=== PATIENT | female | born 1960 | race Caucasian/White ===

== ENCOUNTER → 2020-09-22 10:16 | Outpatient (CLI) | payer BC, SELFPAY ==
--- NOTE | ~2020-09-22 | XR_ITS ---
EXAMINATION: XR chest 2V EXAM DATE: 09/22/2020 10:33 INDICATION: R05 - Cough . TECHNIQUE: Frontal and lateral projections of the chest obtained and reviewed. There is no prior luke dy for comparison. FINDINGS: The lungs are clear. There are no pleural effusions. The cardiomediastinal silhouette is within normal limits. There is no pneumothorax suspected. The bones and soft tissues are unremarkab le. IMPRESSION: No acute cardiopulmonary findings. Reviewed, dictated and finalized at location A. 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
== END ==
PROVIDERS: PCP Family Medicine; Visit Provider Family Medicine
DX: R05 Cough (principal)
CPT/HCPCS: 71046

== ENCOUNTER → 2021-03-27 13:06 | Outpatient (CLI) | payer BC, SELFPAY ==
--- NOTE | ~2021-03-27 | MR_ITS ---
EXAMINATION: MR foot RT wo/w con DATE: 03/27/2021 14:27 INDICATION: Chronic enlarging right foot mass with discomfort. Rheumatoid nodule versus ganglion cyst . TECHNIQUE: Magnetic resonance imaging (MRI) of the right mid and hindfoot was performed without and w ith 12 mL Multihance intravenous contrast. Sequences included axial, sagittal and coronal T1-weighted FSE, axial and coronal T2-weighted FS FSE, sagittal fluid sensitive FSE STIR, axial T1-weighted FS F SE and post contrast T1-weighted FS FSE. COMPARISON: None. FINDINGS: Medial ankle ligaments: Deep and superficial deltoid ligaments as well as the spring ligament are normal. Lateral ankle ligaments: The anterior and posterior inferior tibiofibular ligaments are normal. The anterior talofibular, calc aneofibular and posterior talofibular ligaments are normal. Tendons: Achilles tendon is normal. The peroneus longus and brevis tendons are normal. The tibialis anterior a nd extensor hallucis longus and extensor digitorum longus tendons are normal. The flexor digitorum lo ngus and flexor hallucis longus tendons are normal. 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 Plantar fascia: The plantar aponeurosis is normal. Bones/other: Bone alignment is normal. No fracture or pathologic marrow replacing process. There is enhancing syno vitis at the fifth metatarsophalangeal joint with a few small erosions at the head of the fifth metat arsal. The remaining joint spaces appear normal. There are couple small enhancing lesions in the plan tar fat pad. One situated superficial to the calcaneal insertion of the plantar aponeurosis measures 1.6 x 1.3 x 1.1 cm with peripheral enhancement surrounding a small central T2 hyperintense region. Th e second located superficial to the base of the fifth metatarsal measures 1.9 x 1.0 x 0.8 cm. Fluid: 1.6 x 0 0.6 to 0.9 cm fluid signal intensity ganglion cyst arising from the tibiotalar joint and exte nding inferolaterally along the lateral neck of the talus. No joint effusions or other abnormal fluid collections. IMPRESSION: 1. A couple 1-2 cm enhancing nodules situated in the plantar fat pad plantar to the calcaneal tuberos ity and base of the fifth metatarsal and given appearance and particularly location would favor rheum atoid nodules over ganglion cyst, gouty tophus, adventitial bursa formation, abscess or neoplasm. 2. Synovitis at the fifth metatarsophalangeal joint with small erosions at the head of the fifth meta tarsal consistent with an inflammatory arthritis such as rheumatoid. Differential would also include gout.. 3. Mild tenosynovitis along the otherwise normal tibialis posterior tendon. Reviewed, dictated and finalized at location A. IMPRESSION: 1. A couple 1-2 cm enhancing nodules situated in the plantar fat pad plantar to the calcaneal tuberosity and base of the fifth metatarsal and given appearance and particularly location would favor rheumatoid nodules over ganglion cyst, g outy tophus, adventitial bursa formation, abscess or neoplasm. 2. Synovitis at the fifth metatarsophalangeal joint with small erosions at the head of the fifth metatarsal consistent with an inflammatory arthritis such as rheumatoid. Differential would also include gout.. 3. Mild tenosynovitis along the otherwise normal tibialis posterior tendon.
[2021-03-27 13:49] LABS: Estimated Glomerular Filt Rate > 60
== END ==
PROVIDERS: PCP Family Medicine; Visit Provider Podiatrist Foot & Ankle Surgery
DX: M06.371 Rheumatoid nodule, right ankle and foot (principal); M67.471 Ganglion, right ankle and foot
CPT/HCPCS: 73720; A9577

== ENCOUNTER → 2021-08-22 10:48 | Outpatient (CLI) | payer BC, SELFPAY ==
--- NOTE | ~2021-08-22 | XR_ITS ---
XR lumbar spine min 4V 08/22/2021 12:06 Indication: Low back pain Procedure: 5 views lumbar spine Comparison: 08/14/2018 Findings: There is grade 1 degenerative spondylolisthesis at L3-4. There is facet hypertrophy at L3-4 , L4-5 and L5-S1. There is disc narrowing at L3-4 and L5-S1. Pedicles intact. Sacral foramen are symm etric. Impression: 1: Moderate lumbar spondylosis. Reviewed, dictated and finalized at location A. 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
== END ==
DX: M47.816 Spondylosis without myelopathy or radiculopathy, lumbar region (principal)
CPT/HCPCS: 72110

== ENCOUNTER → 2022-08-06 13:58 | Outpatient (CLI) | payer BC, SELFPAY ==
--- NOTE | ~2022-08-06 | MM_ITS ---
EXAMINATION: MM screening rosalia BI w yoselin HISTORY: Screening mammogram TECHNIQUE: Craniocaudal and mediolateral oblique 3-D tomosynthesis images were obtained and synthetic 2-D images were generated. CAD analysis was submitted and interpreted. COMPARISON: 07/22/2008 bilateral diagnostic mammogram BREAST PARENCHYMAL COMPOSITION: The breasts are heterogeneously dense, which may obscure small masses . FINDINGS: There is no evidence of suspicious mass, calcification, or architectural distortion to sugg est malignancy in either breast. There has been no suspicious interval change. IMPRESSION: 1. No mammographic evidence of malignancy. 2. Recommend routine screening mammography in one year. BI-RADS Category 1: Negative Reviewed, dictated and finalized at location A. GIRDLER
== END ==
PROVIDERS: PCP Family Medicine; Visit Provider Family Medicine
DX: Z12.31 Encounter for screening mammogram for malignant neoplasm of breast (principal)
CPT/HCPCS: 77063; 77067

== ENCOUNTER 2023-06-23 11:38 | Inpatient (IN) | payer BC, SELFPAY ==
[2023-06-23] VITALS (33 sets, daily range): BP systolic 94–145; BP diastolic 53–93; PULSE 102–117; RESP 12–20; TEMP 36.4–37.1; O2SAT 97–100; BMI 21.9
--- NOTE | ~2023-06-23 | CT_ITS ---
EXAMINATION: CT abdomen pelvis w con DATE: 06/23/2023 13:17 INDICATION: GI bleed. TECHNIQUE: Computed tomography (CT) of the abdomen and pelvis was performed with 100 cc Omnipaque 350 intravenous contrast. The dose-length product was 203.50 mGy-cm. Automated exposure control and iter ative reconstruction technique were employed. COMPARISON: No prior studies for comparison. FINDINGS: Lung bases are unremarkable. Heart size normal. No significant pleural or pericardial effus ion. No significant vascular abnormality. No lymphadenopathy. Fatty infiltration of the liver. Gallbl adder is present. The spleen, pancreas, adrenal glands and kidneys are unremarkable. Nonobstructive b owel gas pattern. No free air or free fluid. There are follicular changes in the right ovary. Mild lo wer thoracic and lumbar spondylosis. There is dextroscoliosis of the lumbar spine. There is mild thic kening of the gastric antrum, suspicious for gastritis. IMPRESSION: 1. Mild thickening of the gastric antrum, suspicious for gastritis. 2: Hepatic steatosis. Reviewed, dictated and finalized at location A.
--- NOTE | 2023-06-23 11:42 | ECG_ITS ---
Measurements Intervals Grethel Rate: 115 P: 51 NJ: 139 QRS: 11 QRSD: 81 T: 58 QT: 342 QTc: 474 Interpretive Statements SINUS TACHYCARDIA NONSPECIFIC T-WAVE ABNORMALITY- INFERIOR LEADS BASELINE ARTIFACT- I, II, III, AVR, AVL, AVF, V1-V2, V6 ABNORMAL ECG NO PREVIOUS ECG AVAILABLE FOR COMPARISON Electronically Signed On 06-23-2023 13:24:38 CDT by Elder Vela D.O.
--- NOTE | 2023-06-23 11:54 | ED.WEAKNESS ---
HPI - Weakness General Chief complaint: Weakness Stated complaint: weakness Time Seen by Provider: 06/23/23 11:53 History of Present Illness HPI Narrative: Patient is a 62-year-old female with history of Eric's thyroiditis, on levothyroxine here with generalized weakness. Patient states that approximately 1 week ago she went to an Urgent Care and began Keflex treatment for cellulitis of her right hand. She notes that she was having significant pain in that right hand and was taking at a large amount of ibuprofen throughout the week. She noticed that she had some decreased appetite throughout the week as well and had been relying on juice and candy to keep her glucose steady. She notes that yesterday morning she sat up and sat on the side of the bed for quite a while because she was worried that if she stood up she may pass out. She notes that the symptoms resolved at that time and she was able to go on with her day yesterday without difficulty. Last night however she had a sudden urge to use the restroom, she notes that she had a large bowel movement last night. She then notes that in the middle of the night she had a 2nd episode where she woke suddenly from sleep needing to use the restroom. She states that she fell to the ground at that time which she describes a wheeling herself to the ground hitting her left shoulder and left cheek on her bedroom floor next to her bed. She states she then crawled herself to the restroom and was too weak to lift herself onto the toilet and had fecal incontinence. She notes that it was trish in color and thought that it was likely due to the Red Keflex she had been taking a week. She was unable to get up and had to crawl herself for 2 hours to her living room to call a family member to help her. She denies any abdominal pain at this time. She denies any prior colonoscopy or endoscopy. She previously had done Cologuard screening through her primary care doctor which is always been negative. She is a social weekend drinker. No prior cardiac disease. She received some IV fluids from EMS which she does believe has helped with her symptoms. No prior blood transfusion. She does note that she had some heartburn throughout the day yesterday. Related Data Allergies Allergy/AdvReac Type Severity Reaction Status Date / Time Sulfa (Sulfonamide Allergy Unknown Skin Verified 06/23/23 11:59 Antibiotics) Reaction azithromycin AdvReac Severe Thrush Verified 06/23/23 11:59 Review of Systems Review of Systems: CONSTITUTIONAL: Denies fever, chills, or sweats. EYES: Denies visual changes, redness, or discharge. ENT: Denies rhinorrhea, congestion, sore throat, or otalgia. CARDIOVASCULAR: Denies chest pain, palpitations, or edema. Light headedness RESPIRATORY: Denies cough or dyspnea. GASTROINTESTINAL: Fecal urgency, diarrhea, heartburn, Denies nausea, vomiting GENITOURINARY: Denies dysuria or hematuria. SKIN: Denies rash or itching. MUSCULOSKELETAL: Denies back pain, joint pain, or myalgia. NEUROLOGIC: Generalized weakness. Denies headache, numbness PSYCHIATRIC: Denies anxiety or depression. [facility] Social History Social History Smoking status: Never smoker Second hand tobacco smoke exposure: No Alcohol intake: current Drinks per week: 7 Alcohol use details: drinks on weekend Substance use: never Exam Narrative: GENERAL: Well-appearing, well-nourished, and in no acute distress. HEAD: Normocephalic, atraumatic. EYES: PERRLA and EOMI. ENT: Nares clear. Mucous membranes dry.. NECK: Supple. CHEST: Clear to auscultation. No respiratory distress. HEART: Tachycardic. Normal peripheral pulses. ABDOMEN: Soft, nontender, nondistended. No rebound or guarding. EXTREMITIES: Normal range of motion. No edema. SKIN: Warm, dry, no rash. NEURO: No focal deficits. Alert and oriented x3. PSYCH: Normal mood and affect. Course Course
[2023-06-23 12:19] LABS: Basophils Percent Auto 0.2 % (0.2-1.2); Hematocrit 23.7 % (37.0-47.0); Hemoglobin 8.6 g/dL (12.0-15.0); Immature Granulocyte Absolute 0.44 K/mm3 (0.00-0.031); Immature Granulocyte Percent A 1.7 % (0-0.5); Lymphocytes Absolute Auto 1.04 K/mm3 (0.9-3.2); Lymphocytes Percent Auto 4.1 % (18.3-44.2); Mean Corpuscular HGB Conc 36.3 g/dl (32-36); Mean Corpuscular Hemoglobin 37.9 pg (26-34); Mean Corpuscular Volume 104.4 fl (80-100); Monocytes Absolute Auto 1.5 K/mm3 (0.1-0.6); Monocytes Percent Auto 5.7 % (2.6-8.5); Neutrophils Absolute Auto 22.3 K/mm3 (1.3-6.7); Neutrophils Percent Auto 88.3 % (45.5-73.1); Platelet Count Result 411 k/mm3 (150-375); Red Blood Count 2.27 M/mm3 (4.2-5.4); Red Cell Distribution Width 12.8 % (11.5-14.5); White Blood Count 25.3 K/mm3 (4.5-10.0)
[2023-06-23 12:26] LABS: INR 1.2; Prothrombin Time 15.8 Seconds (11.1-14.7)
[2023-06-23 12:27] LABS: Partial Thromboplastin Time 24.3 SECONDS (22.3-36.8)
[2023-06-23] MEDS: PANTOPRAZOLE SODIUM IV 40 MG VIAL 80 MG IV PUSH (12:40)
[2023-06-23 12:48] LABS: Ethanol < 10 mg/dL (<10)
[2023-06-23] MEDS: LACTATED RINGERS 1,000 ML 999 ML IV CONT ×4 (12:49→16:43)
[2023-06-23 12:51] LABS: SARS-CoV-2 RNA PCR Negative (Negative)
[2023-06-23 12:51] LABS: Albumin Level 3.5 g/dL (3.5-5.1); Alkaline Phosphatase 49 U/L (38-126); Anion Gap 17 mmol/L (8-16); Aspartate Amino Transferase 49 U/L (14-36); Bilirubin,Total 0.8 mg/dL (0.2-1.3); Blood Urea Nitrogen 21 mg/dL (7-17); CRP 1.5 mg/dL (<1.0); Carbon Dioxide 19 mmol/L (22-30); Chloride 87 mmol/L (98-107); Estimated CRCL calculation 56 ml/min; Estimated Glomerular Filt Rate > 60; Glucose 137 mg/dL (65-110); Lipase 81 U/L (23-300); Magnesium 1.6 mg/dL (1.6-2.3); Potassium 2.4 mmol/L (3.4-5.0); Sodium 123 mmol/L (137-145)
[2023-06-23 12:52] LABS: Appearance Urine Clear (Clear); Bacteria Urine None Seen /hpf; Bilirubin Urine Negative (Negative); Blood Urine Negative (Negative); Color Urine Yellow (Yellow); Glucose Urine UA Negative (Negative); Ketones Urine Negative (Negative); Leukocyte Esterase Ur Negative LEU/UL (Negative); Need Manual Microscopic Reviewed; Nitrate Urine Negative (Negative); Protein Urine Trace mg/dL (Negative); RBC Urine 0-2 /hpf (0-2); Specific Grav Ur 1.015 (1.001-1.035); Squamous Epithelial Cell Urine None seen /hpf (Few); WBC Urine 0-5 /hpf; pH Urine 7.5 (5.0-9.0)
[2023-06-23 12:56] LABS: Add Urine Microscopic? YES
[2023-06-23 12:56] LABS: Alanine Aminotransferase 36 U/L (6-35)
[2023-06-23 13:01] LABS: NT Pro B Type Natriuretic Pept 394 pg/mL (19.9-100); Troponin I < 0.012 ng/mL (0.000-0.034)
[2023-06-23] MEDS: POTASSIUM CHLORIDE INJ 40 MEQ in SODIUM CHLORIDE 0.9% IV 500 ML 130 MEQ IVPB (13:39)
[2023-06-23] MEDS: LORazepam INJ (*CRX) 2 MG/ML VIAL 0.5 MG IV PUSH (13:47)
[2023-06-23 15:52] LABS: Lactic Acid Reflex 4.6 mmol/L (0.7-2.0)
[2023-06-23] MEDS: PIPERACILLN/TAZ 3.375GM/NS50ML 3.375 GM/50 ML BAG IVPB ×2 (16:43→22:21)
--- NOTE | 2023-06-23 17:42 | PC.NURSE ---
This patient, Nohemy Dickson, was admitted to Medical Room 252-01. Patient/family oriented to hospital policies and general routines including ID bracelet, bed and alarms, visiting hours, pain management, procedures, bathroom and other care routines, personal items, smoking policy, room service/diet, and visiting hours. Information on how to activate the Rapid Response Team has been discussed. Patient/Family are encouraged to report perceived risks to care and to ask questions if they do not understand what they are told or what they should do.
--- NOTE | 2023-06-23 17:43 | PM.IMHP ---
H&P: HPI History of Present Illness Date/Time: 06/23/23 16:45 Chief Complaint: Weakness. Narrative: This is a 62-year-old female with hypothyroidism and idiopathic peripheral neuropathy who presented to the emergency department via EMS from home for evaluation of weakness. The patient provides the following history. A little over week ago she was diagnosed with cellulitis of the right hand and she finished her cephalexin prescription yesterday. The cellulitis has resolved however she has continued to feel unwell and reports that she has not had much of an appetite whatsoever since starting the antibiotic. In fact it does not sound as though she has had much to eat in the past 1 week with her only oral intake being cran-frey juice and a piece of candy here and there to keep her glucose steady. She has had some nausea but no vomiting. The last couple of days she has had some heartburn which is unusual for her and with further questioning she does mention that she has been taking up to 800 mg of ibuprofen 4 times a day for the last 7 days due to discomfort in her arm from the cellulitis. The last few days she has become increasingly weak and she has been lightheaded and dizzy upon standing. In the middle of the night last night she had the sudden urge to have a bowel movement and when she tried to get up to the bathroom she fell to the ground and hit her left cheek and shoulder on the bedroom floor. She denies loss of consciousness in the fall. She was able to crawl to the bathroom however was too weak to pull herself up to the toilet and she reports being incontinent of a large amount of ?rust colored? loose stool. She thought the red discoloration of the stool was likely due to the juice that she had been drinking in addition to the dye in her antibiotic as the capsule was red. Eventually she was able to crawl out of the bathroom and get her phone to call for help. Her blood pressures were stable on arrival to the emergency department. She has been in a sinus tachycardia in the low 100s since arrival. Her labs were significant for a WBC count of 25.3, hemoglobin 8.6, MCV 104.4, sodium 123, potassium 2.4, chloride 87, carbon dioxide 19, BUN 21, creatinine 0.80, lactic acid 4.6, AST 49, ALT 36, TSH 2.930. Urinalysis was unremarkable. CT of the abdomen pelvis showed mild thickening of the gastric antrum suspicious for gastritis and hepatic steatosis. In the ED she received multiple L of IV crystalloids, potassium chloride, pantoprazole, and piperacillin/tazobactam. She is being admitted in this setting for further treatment and evaluation of SIRS, electrolyte abnormalities, gastritis, and questionable bloody stools. Review of Systems Review of Systems: Twelve systems were reviewed. No headache or neck ache. She denies sinus congestion and sore throat. No cough. No chest pain or pleuritic pain. She has some mild abdominal discomfort but nothing significant. No sick contacts. No dysuria. Except as documented, all other systems were reviewed and are negative. COUNT INCLUDES THE [facility] Past Medical History Medical History Anxiety Hypothyroidism Idiopathic peripheral neuropathy Surgical History Surgical History History of appendectomy Family History Family History Other Family history non-contributory Social History Social History Social History: Surrogate medical decision maker: Jessica Miranda, daughter. Code status: Full code. Smoking status: Never smoker Second hand tobacco smoke exposure: No Alcohol intake: current Drinks per week: 4 Alcohol use details: Social alcohol use in moderation on the weekends. Substance use: never Lack of Transportation: No Lack of Food: Never True Current Housing: I Have Housing Concer
[2023-06-23 18:30] LABS: Reflex Lactic Acid Yes or No Add Lactic
[2023-06-23 18:44] LABS: Immature Reticulocyte Fraction 10.2 % (3.0-15.9); Reticulocyte Hemoglobin Conten 36.4 pg (28.2-35.7); Reticulocyte Percent 0.65 % (0.7-4.3); Reticulocytes Absolute 0.01 M/mm3 (0.02-0.1)
[2023-06-23 18:58] LABS: Lactic Acid Reflex 3.4 mmol/L (0.7-2.0)
[2023-06-23 19:27] LABS: Iron 123 ug/dL (37-170)
[2023-06-23 19:36] LABS: Percent Iron Saturation 66 % (20-50)
[2023-06-23 19:43] LABS: Procalcitonin 0.4 ng/mL
[2023-06-23 20:13] LABS: Vitamin B12 > 1000.0 pg/mL (239-931)
[2023-06-23 20:16] LABS: Anion Gap 7 mmol/L (8-16); Blood Urea Nitrogen 22 mg/dL (7-17); Calcium 8.2 mg/dL (8.4-10.2); Carbon Dioxide 22 mmol/L (22-30); Chloride 94 mmol/L (98-107); Estimated CRCL calculation 64 ml/min; Estimated Glomerular Filt Rate > 60; Glucose 109 mg/dL (65-110); Magnesium 1.2 mg/dL (1.6-2.3); Potassium 3.2 mmol/L (3.4-5.0); Sodium 123 mmol/L (137-145)
[2023-06-23] MEDS: FAMOTIDINE 20 MG/2 ML VIAL IV PUSH (21:15)
[2023-06-23 22:05] LABS: IFOB Positive Control Positive; Immunochemical Fecal Occult Bl Positive (N)
[2023-06-23] MEDS: MAGNESIUM SULFATE 3GM/D5W100ML 3 GM/100 ML BAG IVPB (23:13)
[2023-06-23 23:53] LABS: Creatinine Urine 40.6 mg/dL; Urea Random Urine 331 MG/DL
[2023-06-23] MEDS: KCL 20 MEQ/SW 100 ML 100 ML 50 MEQ IVPB (23:59)
[2023-06-23] MEDS: PANTOPRAZOLE SODIUM IV 40 MG VIAL IV PUSH (23:59)
[2023-06-24] VITALS (21 sets, daily range): BP systolic 102–146; BP diastolic 51–86; PULSE 90–110; RESP 14–22; TEMP 36.4–37.3; O2SAT 96–100
[2023-06-24 00:24] LABS: Sodium Urine Random 23 meq/L
[2023-06-24 00:46] LABS: Sodium 123 mmol/L (137-145)
[2023-06-24 02:02] LABS: Hematocrit 13.7 % (37.0-47.0)
[2023-06-24] MEDS: SODIUM CHLORIDE 0.9% IV 250 ML 30 ML IV CONT (02:40)
[2023-06-24 03:24] LABS: Sodium 124 mmol/L (137-145)
[2023-06-24 04:44] LABS: Toxigenic C. Diff NEGATIVE (NEGATIVE)
[2023-06-24] MEDS: PIPERACILLN/TAZ 3.375GM/NS50ML 3.375 GM/50 ML BAG IVPB ×4 (06:08→23:07)
[2023-06-24] MEDS: LEVOTHYROXINE SODIUM 75 MCG TABLET PO (06:08)
--- NOTE | 2023-06-24 06:53 | PM.IMPN ---
Progress Note: A&P Assessment and Plan (1) Lactic acidosis: Code(s): E87.20 - Acidosis, unspecified Status: Acute Assessment and Plan: lactic was 4.6 on admission s/p 4 L in the ED of LR lactic decreased to 3.4 Awaiting repeat lactic from this mornings labs Unclear etiology as her cellulitis has resolved, her u/a is negative, and imaging so far has been negative for concerns of ischemic bowel Stool cultures collected, c-diff negative Blood cultures growing GPC in chains x 2 bottles. Initially growth in only one bottle so blood cultures were repeated this morning. Add on MRSA screen (2) Bloody stool: Code(s): K92.1 - Melena Status: Acute Assessment and Plan: Occult blood positive. Patient reports rust colored stools at home. Frequent use of NSAIDs this last week without food intake. GI consulted and recommendations are appreciated. CT is concerning for gastritis. (3) Electrolyte abnormality: Code(s): E87.8 - Other disorders of electrolyte and fluid balance, not elsewhere classified Status: Acute Assessment and Plan: Likely related to severe dehydration K+ 2.4, Mg 1.2, Na 123 Repeating BMP this morning after replacements Q 3 hours Na+ Add on IVF NS at 100 ml for slow correction of Na+ Telemetry ordered (4) Gastritis: Qualifiers: Chronicity: acute Gastritis bleeding: with bleeding Gastritis type: unspecified gastritis Qualified Code(s): K29.01 - Acute gastritis with bleeding Code(s): K29.70 - Gastritis, unspecified, without bleeding Status: Acute Assessment and Plan: CT shows concerns of gastritis Over use of NSAIDs through the last 7 days Protonix BID (5) Systemic inflammatory response syndrome: Code(s): R65.10 - Systemic inflammatory response syndrome (SIRS) of non-infectious origin without acute organ dysfunction Status: Acute Assessment and Plan: qSOFA score is 1, low risk for sepsis development. (6) Generalized weakness: Code(s): R53.1 - Weakness Status: Acute Assessment and Plan: Likely related to anemia, dehydration, and poor nutrition over the last week. Fall precautions (7) Macrocytic anemia: Code(s): D53.9 - Nutritional anemia, unspecified Status: Acute Assessment and Plan: Hgb was 8.6 on arrival, 5.0 after fluid resuscitation. Received 1 unit pRBC Repeat H/H pending, continue q 6 H/H. Hgb 7.4 this morning after 1 unit pRBC. Transfuse for hgb less than 7 g/dl (8) Hypothyroidism: Code(s): E03.9 - Hypothyroidism, unspecified Status: Acute Assessment and Plan: TSH 1.86 on admission Stable on levothyroxine (9) Idiopathic peripheral neuropathy: Code(s): G60.9 - Hereditary and idiopathic neuropathy, unspecified Status: Acute Assessment and Plan: Stable. On gabapentin. Plan Feeding:NPO Analgesia:Tylenol Thromboembolic prophylaxis: SCD's Ulcer prophylaxis: Protonix BID Glycemic control: N/A Bowel regimen: N/A Lines: PIV Antibiotics: Zosyn GI consult today with anticipated EGD, colonoscopy in the future. Subjective Date/time seen: 06/24/23 06:53 Interval history: This is a 62-year-old female with hypothyroidism and idiopathic peripheral neuropathy who presented to the ER via EMS from home for evaluation of weakness and recent fall. She recently completed a seven-day course of Keflex for a right arm cellulitis. She admits to taking ibuprofen frequently, up to 4 times a day during the last 7 days to treat the discomfort from her cellulitis. She also says that she has not been eating or drinking much in the last week as well. And middle of the night on 06/22 she had up to the bathroom and fell striking her left cheek and left shoulder on the bedroom floor. She had a large incontinent bowel movement that was rust colored. She was too weak to polar sub follow up from the ground
--- NOTE | 2023-06-24 07:57 | WPDGICN ---
Assessment and Plan Assessment and plan (1) Acute GI bleeding: Code(s): K92.2 - Gastrointestinal hemorrhage, unspecified Status: Acute Assessment and Plan: Patient with GI bleeding. Etiology unclear but suspicious for upper GI blood loss. Plan to transfuse to stable hemoglobin. Maintained on proton pump inhibitor. An EGD will be performed this morning. Further recommendations after endoscopy. GI Consult Note Consult date/time: 06/24/23 07:57 Reason for consult: GI bleeding HPI: Nohemy Dickson is a 62 year old female I am asked to see because of GI blood loss. Patient reports having cellulitis on her right hand a week or so ago. She initially was placed on Keflex. She states on Saturday began to pass bloody stools sometimes dark in nature. Somewhat rust colored. She subsequently presented the hospital was found to be anemic with heme-positive stools and admitted. Overnight has continued to have bloody stools. Hemoglobin is decline to a hemoglobin of 5. Patient denies any significant abdominal pain. Family history noncontributory. In the ER a CT scan suggest potential for gastritis. [facility] Past Medical History Medical History Anxiety Hypothyroidism Idiopathic peripheral neuropathy Surgical History Surgical History History of appendectomy Family History Family History Other Family history non-contributory Social History Social History Social History: Surrogate medical decision maker: Jessica Miranda, daughter. Code status: Full code. Smoking status: Never smoker Second hand tobacco smoke exposure: No Alcohol intake: current Drinks per week: 4 Alcohol use details: Social alcohol use in moderation on the weekends. Substance use: never Lack of Transportation: No Lack of Food: Never True Current Housing: I Have Housing Concerned About Future Housing: No Difficulty Paying Gas/Electric Bills: No Difficulty Paying for Meds: No Currently Unemployed: No Education: High School Diploma/GED Difficulty w/ Childcare or Family Care: No Spiritual care concerns: No Meds Home Medications and Allergies Home Medications Medication Instructions Recorded Confirmed Type gabapentin 300 mg capsule 600 mg PO TID 06/23/23 06/23/23 History levothyroxine 75 mcg tablet 75 mcg PO DAILY 06/23/23 06/23/23 History Allergies Allergy/AdvReac Type Severity Reaction Status Date / Time Sulfa (Sulfonamide Allergy Unknown Skin Verified 06/23/23 11:59 Antibiotics) Reaction azithromycin AdvReac Severe Thrush Verified 06/23/23 11:59 Vital Signs Vital Signs - 24 hr 06/23/23 11:37 06/23/23 12:06 06/23/23 12:06 Temperature 97.6 F Pulse Rate 117 H 113 H 114 H Respiratory Rate 17 Blood Pressure 143/83 H 135/93 H 145/75 H Pulse Oximetry 99 Oxygen Delivery Room Air 06/23/23 12:19 06/23/23 12:31 06/23/23 12:50 Temperature Pulse Rate 111 H Respiratory Rate 20 20 Blood Pressure 124/80 Pulse Oximetry 100 Oxygen Delivery 06/23/23 13:00 06/23/23 13:23 06/23/23 13:25 Temperature Pulse Rate 111 H 110 H 109 H Respiratory Rate 15 20 17 Blood Pressure 140/82 Pulse Oximetry 100 100 Oxygen Delivery 06/23/23 13:30 06/23/23 13:48 06/23/23 14:00 Temperature Pulse Rate 109 H 112 H 113 H Respiratory Rate 19 18 20 Blood Pressure Pulse Oximetry 100 Oxygen Delivery 06/23/23 14:01 06/23/23 14:25 06/23/23 14:37 Temperature Pulse Rate 113 H 105 H 104 H Respiratory Rate 16 12 12 Blood Pressure 122/78 Pulse Oximetry 100 Oxygen Delivery 06/23/23 14:45 06/23/23 15:00 06/23/23 15:21 Temperature Pulse Rate 103 H 104 H 107 H Respiratory Rate 14 14 16 Blood Pressure Puls
[2023-06-24] MEDS: PANTOPRAZOLE SODIUM IV 40 MG VIAL IV PUSH ×2 (09:37→20:16)
[2023-06-24 10:17] LABS: Alanine Aminotransferase 20 U/L (6-35); Albumin Level 2.8 g/dL (3.5-5.1); Alkaline Phosphatase 45 U/L (38-126); Anion Gap 7 mmol/L (8-16); Aspartate Amino Transferase 42 U/L (14-36); Blood Urea Nitrogen 22 mg/dL (7-17); Calcium 7.6 mg/dL (8.4-10.2); Carbon Dioxide 24 mmol/L (22-30); Chloride 94 mmol/L (98-107); Estimated CRCL calculation 64 ml/min; Estimated Glomerular Filt Rate > 60; Glucose 113 mg/dL (65-110); Potassium 2.9 mmol/L (3.4-5.0); Sodium 125 mmol/L (137-145)
[2023-06-24 10:19] LABS: Lactic Acid Reflex 1.4 mmol/L (0.7-2.0)
[2023-06-24 10:40] LABS: Hemoglobin 7.4 g/dL (12.0-15.0); Mean Corpuscular HGB Conc 36.1 g/dl (32-36); Mean Corpuscular Hemoglobin 34.9 pg (26-34); Mean Corpuscular Volume 96.7 fl (80-100); Mean Platelet Volume 9.8 fl (7.4-10.4); Platelet Count Result 237 k/mm3 (150-375); Red Blood Count 2.12 M/mm3 (4.2-5.4); Red Cell Distribution Width 13.8 % (11.5-14.5)
[2023-06-24 10:42] LABS: Hematocrit 20.5 % (37.0-47.0)
[2023-06-24] MEDS: SODIUM CHLORIDE 0.9% IV 1,000 ML 100 ML IV CONT (11:26)
[2023-06-24] MEDS: POTASSIUM CHLORIDE INJ 40 MEQ in SODIUM CHLORIDE 0.9% IV 500 ML 130 MEQ IVPB (13:20)
[2023-06-24] MEDS: LACTATED RINGERS 1,000 ML 150 ML IV CONT (14:09)
--- NOTE | 2023-06-24 14:18 | WPDANESEPPF ---
Anes - Initial Pre Proc Eval Procedure: Operation Date: 06/24/23 15:00 Proposed Procedures p Esophagogastroduodenoscopy - Vicente Donis MD Date/Time: 06/24/23 14:18 Surgeon: Marquise Torres MD Pre Op Diagnosis: Gastritis,Hypokalemia,Hyponatremia,Sepsis Patient Data Age: 62 Gender: F Height: 1.63 m Weight: 58 kg Last Vital Signs Temp 97.6 F 06/24/23 14:05 Pulse 103 H 06/24/23 14:05 Resp 18 06/24/23 14:05 BP 133/78 06/24/23 14:05 Pulse Ox 96 06/24/23 14:05 O2 Del Method Room Air 06/24/23 14:05 Allergies Allergy/AdvReac Type Severity Reaction Status Date / Time Sulfa (Sulfonamide Allergy Unknown Skin Verified 06/24/23 14:01 Antibiotics) Reaction azithromycin AdvReac Severe Thrush Verified 06/24/23 14:01 Home Medications Medication Instructions Recorded Confirmed Type gabapentin 300 mg capsule 600 mg PO TID 06/23/23 06/23/23 History levothyroxine 75 mcg tablet 75 mcg PO DAILY 06/23/23 06/23/23 History Laboratory Tests 06/23/23 06/23/23 06/23/23 12:06 15:24 18:37 WBC RBC Hgb Hct MCV MCH MCHC RDW Plt Count MPV Absolute Retic 0.01 L M/mm3 (0.02-0.1) Percent Retic 0.65 L % (0.7-4.3) Immature Retic Fraction 10.2 % (3.0-15.9) Retic Hgb Content 36.4 H pg (28.2-35.7) Sodium Potassium Chloride Carbon Dioxide Anion Gap BUN Creatinine Estim Creat Clear Calc Estimated GFR Glucose Serum Osmolality Lactic Acid 4.6 H* mmol/L 3.4 H mmol/L (0.7-2.0) (0.7-2.0) Calcium Magnesium Iron 123 ug/dL (37-170) TIBC 186 L ug/dL (261-462) % Saturation 66 H % (20-50) Ferritin 740.00 H ng/mL (11.1-264) Total Bilirubin AST ALT Alkaline Phosphatase Total Protein Albumin Vitamin B12 > 1000.0 H pg/mL (239-931) Folate 3.0 ng/mL (2.76->20) Procalcitonin 0.4 ng/mL TSH (Reflex) 2.730 uIU/mL (0.465-4.68) Urine Osmolality Ur Random Sodium Ur Random Urea Urine Creatinine Stl Occult Blood (IFOB) C. difficile (PCR) Blood Type A Negative Antibody Screen Negative Crossmatch See Detail 06/23/23 06/23/23 06/23/23 19:55 21:07 23:22 WBC RBC Hgb Hct MCV MCH MCHC RDW Plt Count MPV Absolute Retic Percent Retic Immature Retic Fraction Retic Hgb Content Sodium 123 L mmol/L (137-145) Potassium 3.2 L mmol/L (3.4-5.0) Chloride 94 L mmol/L (98-107) Carbon Dioxide 22 mmol/L (22-30) Anion Gap 7 L mmol/L (8-16) BUN 22 H mg/dL (7-17) Creatinine 0.70 mg/dL (0.7-1.0) Estim Creat Clear Calc 64 ml/min Estimated GFR > 60 (59 - ) Glucose 109 mg/dL (65-110) Serum Osmolality Lactic Acid Calcium 8.2 L mg/dL (8.4-10.2) Magnesium 1.2 L mg/dL (1.6-2.3) Iron TIBC % Saturation Ferritin Total Bilirubin AST ALT Alkaline Phosphatase Total Protein Albumin Vitamin B12 Folate Procalcitonin TSH (Reflex) Urine Osmolality Pending Ur Random Sodium 23 meq/L Ur Random Urea 331 MG/DL Ur
[2023-06-24 16:23] LABS: Hemoglobin 7.1 g/dL (12.0-15.0)
[2023-06-24 16:31] LABS: Hematocrit 19.5 % (37.0-47.0)
[2023-06-24 16:39] LABS: Anion Gap 5 mmol/L (8-16); Blood Urea Nitrogen 22 mg/dL (7-17); Calcium 7.4 mg/dL (8.4-10.2); Carbon Dioxide 24 mmol/L (22-30); Chloride 96 mmol/L (98-107); Estimated CRCL calculation 73 ml/min; Estimated Glomerular Filt Rate > 60; Glucose 113 mg/dL (65-110); Magnesium 1.9 mg/dL (1.6-2.3); Potassium 3.1 mmol/L (3.4-5.0); Sodium 125 mmol/L (137-145)
[2023-06-24] MEDS: GABAPENTIN 300 MG CAPSULE 600 MG PO ×2 (17:20)
[2023-06-24 23:01] LABS: Hematocrit 18.8 % (37.0-47.0); Hemoglobin 6.6 g/dL (12.0-15.0)
[2023-06-24 23:13] LABS: Anion Gap 6 mmol/L (8-16); Blood Urea Nitrogen 17 mg/dL (7-17); Calcium 7.2 mg/dL (8.4-10.2); Carbon Dioxide 22 mmol/L (22-30); Chloride 101 mmol/L (98-107); Estimated CRCL calculation 73 ml/min; Estimated Glomerular Filt Rate > 60; Glucose 107 mg/dL (65-110); Potassium 3.2 mmol/L (3.4-5.0); Sodium 129 mmol/L (137-145)
[2023-06-25] VITALS (22 sets, daily range): BP systolic 131–161; BP diastolic 69–94; PULSE 90–107; RESP 14–18; TEMP 35.8–36.6; O2SAT 98–100; BMI 22.5
[2023-06-25] MEDS: SODIUM CHLORIDE 0.9% IV 250 ML 30 ML IV CONT (00:30)
[2023-06-25] MEDS: ACETAMINOPHEN 325 MG TABLET 650 MG PO (05:00)
[2023-06-25] MEDS: PIPERACILLN/TAZ 3.375GM/NS50ML 3.375 GM/50 ML BAG IVPB ×4 (05:15→22:59)
[2023-06-25] MEDS: SODIUM CHLORIDE 0.9% IV 1,000 ML 100 ML IV CONT (05:15)
[2023-06-25] MEDS: LEVOTHYROXINE SODIUM 75 MCG TABLET PO (05:45)
--- NOTE | 2023-06-25 07:29 | WPDGIPROGNO ---
Progress Note: A&P Assessment and Plan (1) Gastric ulcer: Code(s): K25.9 - Gastric ulcer, unspecified as acute or chronic, without hemorrhage or perforation Status: Acute Assessment and Plan: Patient with several gastric ulcers as well as pyloric channel ulcers. These were no longer bleeding at the time of endoscopy. Patient's stools have cleared and now returned to normal. Plan to advance diet. Avoid NSAIDs which appeared to have been etiology for this ulcer. Follow-up EGD advised in 2 months. Patient should be maintained on Protonix or similar PPI until follow-up EGD is accomplished. Okay to increase activity and discharge. I understand was transfused in follow-up hemoglobin advised prior to discharge today. Subjective Date/time seen: 06/25/23 07:29 Interval history: Patient alert comfortable this morning. Tolerated liquid diet without difficulty. No additional bleeding noted. Stools now normal color. Patient denies abdominal pain. Anxious to go home. Review of Systems Review of Systems: Review of systems noncontributory. Exam Narrative: Physical exam reveals patient to be alert. Vital signs stable. HEENT exam is unremarkable. Patient is anicteric. Lungs are clear to auscultation and percussion. Heart is without murmur or extra sounds. Abdomen bowel sounds are present soft nontender with no organomegaly. Objective Data Vital Signs Vital Signs: Vital Signs - 24 hr 06/24/23 09:25 06/24/23 08:00 06/24/23 14:05 Temperature 97.6 F Pulse Rate 103 H Pulse Rate [Bilateral Radial Palpation] Respiratory Rate 18 Blood Pressure 133/78 Pulse Oximetry 100 96 Oxygen Delivery Room Air Room Air Room Air 06/24/23 14:34 06/24/23 14:44 06/24/23 14:54 Temperature Pulse Rate 95 90 98 Pulse Rate [Bilateral Radial Palpation] Respiratory Rate 22 H 18 22 H Blood Pressure 114/70 110/68 119/72 Pulse Oximetry 100 100 100 Oxygen Delivery Room Air Room Air Room Air 06/24/23 15:15 06/24/23 08:00 06/24/23 12:00 Temperature 97.7 F Pulse Rate 102 H 104 H 98 Pulse Rate [Bilateral Radial Palpation] Respiratory Rate 16 Blood Pressure 124/75 Pulse Oximetry 100 Oxygen Delivery 06/24/23 16:00 06/24/23 20:00 06/24/23 20:26 Temperature 97.6 F 97.6 F Pulse Rate 100 101 H 101 H Pulse Rate [Bilateral Radial Palpation] Respiratory Rate 18 18 Blood Pressure 114/71 114/71 Pulse Oximetry 100 100 Oxygen Delivery 06/24/23 20:25 06/24/23 20:25 06/24/23 19:59 Temperature 97.6 F 97.6 F Pulse Rate 104 H 109 H 96 Pulse Rate [Bilateral Radial Palpation] Respiratory Rate 18 18 Blood Pressure 105/64 102/51 L Pulse Oximetry 100 100 Oxygen Delivery 06/24/23 23:41 06/25/23 00:40 06/25/23 00:04 Temperature 97.0 F L Pulse Rate 107 H 107 H Pulse Rate [Bilateral Radial Palpation] 110 H Respiratory Rate 18 Blood Pressure 133/80 Pulse Oximetry 100 Oxygen Delivery 06/25/23 00:00 06/25/23 00:55 06/25/23 01:55 Temperature 96.5 F L 97.4 F L Pulse Rate 100 97 Pulse Rate [Bilateral Radial Palpation] 107 H Respiratory Rate 18 14 Blood Pressure 137/75 134/77 Pulse Oximetry 100 99 Oxygen Delivery 06/25/23 02:30 06/25/23 03:03 06/25/23 03:18 Temperature 97.8 F 97.8 F 97.7 F Pulse Rate 99 94 95 Pulse Rate [Bilateral Radial Palpation] Respiratory Rate 14 14 15 Blood Pressure 138/78 141/81 H 148/90 H Pulse Oximetry 99 99 99 Oxygen Delivery 06/25/23 04:00 06/25/23 04:18 06/25/23 04:24 Temperature 97.8 F 97.8 F Pulse Rate 93 103 H 103 H Pulse Rate [Bilateral Radial Palpation] Respiratory Rate 18 18 Blood Pressure 145/94 H 145/94 H Pulse Oximetry 98 98 Oxygen Delivery 06/25/23 05:12 Temperature 97.4 F L Pulse Rate 93 Pulse Rate [Bilateral Radial Palpation] Respiratory Rate 15 Blood Pressure 161/89 H Pulse Oximetry Oxygen Delivery Intake/Output Intake/Output: Intake &
--- NOTE | 2023-06-25 07:51 | PM.IMPN ---
Progress Note: A&P Assessment and Plan (1) Lactic acidosis: Code(s): E87.20 - Acidosis, unspecified Status: Acute Assessment and Plan: lactic was 4.6 on admission s/p 4 L in the ED of [facility] lactic decreased to 3.4 Awaiting repeat lactic from this mornings labs Unclear etiology as her cellulitis has resolved, her u/a is negative, and imaging so far has been negative for concerns of ischemic bowel Stool cultures collected, c-diff negative Blood cultures growing GPC in chains x 2 bottles. Initially growth in only one bottle so blood cultures were repeated this morning. Blood cultures growing strep awaiting sensitivities. (2) Bloody stool: Code(s): K92.1 - Melena Status: Acute Assessment and Plan: Occult blood positive. Patient reports rust colored stools at home. Frequent use of NSAIDs this last week without food intake. GI consulted and went for EGD 06/24. Findings include several gastric ulcers as well as pyloric channel ulcers but no active bleeding during endoscopy. CT is concerning for gastritis. (3) Electrolyte abnormality: Code(s): E87.8 - Other disorders of electrolyte and fluid balance, not elsewhere classified Status: Acute Assessment and Plan: Likely related to severe dehydration K+ 2.4, Mg 1.2, Na 123 Repeating BMP this morning after replacements Telemetry ordered (4) Gastritis: Qualifiers: Chronicity: acute Gastritis bleeding: with bleeding Gastritis type: unspecified gastritis Qualified Code(s): K29.01 - Acute gastritis with bleeding Code(s): K29.70 - Gastritis, unspecified, without bleeding Status: Acute Assessment and Plan: CT shows concerns of gastritis Over use of NSAIDs through the last 7 days Protonix BID (5) Systemic inflammatory response syndrome: Code(s): R65.10 - Systemic inflammatory response syndrome (SIRS) of non-infectious origin without acute organ dysfunction Status: Acute Assessment and Plan: qSOFA score is 1, low risk for sepsis development. (6) Generalized weakness: Code(s): R53.1 - Weakness Status: Acute Assessment and Plan: Likely related to anemia, dehydration, and poor nutrition over the last week. Fall precautions GI is okay with advancing diet today. (7) Macrocytic anemia: Code(s): D53.9 - Nutritional anemia, unspecified Status: Acute Assessment and Plan: Hgb was 8.6 on arrival, 5.0 after fluid resuscitation. Received 1 unit pRBC Repeat H/H pending, continue q 6 H/H. Hgb 6.6 last night. Repeated another unit of pRBC. Patient has now received 2 units of pRBC this admission. Awaiting repeat labs this morning. Transfuse for hgb less than 7 g/dl (8) Hypothyroidism: Code(s): E03.9 - Hypothyroidism, unspecified Status: Acute Assessment and Plan: TSH 1.86 on admission Stable on levothyroxine (9) Idiopathic peripheral neuropathy: Code(s): G60.9 - Hereditary and idiopathic neuropathy, unspecified Status: Acute Assessment and Plan: Stable. On gabapentin. Plan Feeding:regular diet Analgesia:Tylenol Thromboembolic prophylaxis: SCD's Ulcer prophylaxis: Protonix BID Glycemic control: N/A Bowel regimen: N/A Lines: PIV Antibiotics: Zosyn Subjective Date/time seen: 06/25/23 07:51 Interval history: This is a 62-year-old female with hypothyroidism and idiopathic peripheral neuropathy who presented to the ER via EMS from home for evaluation of weakness and recent fall. She recently completed a seven-day course of Keflex for a right arm cellulitis. She admits to taking ibuprofen frequently, up to 4 times a day during the last 7 days to treat the discomfort from her cellulitis. She also says that she has not been eating or drinking much in the last week as well. And middle of the night on 06/22 she had up to the bathroom and fell striking her left cheek and lef
[2023-06-25] MEDS: GABAPENTIN 300 MG CAPSULE 600 MG PO ×3 (08:26→17:21)
[2023-06-25] MEDS: PANTOPRAZOLE 40 MG TABLET PO ×2 (08:26→20:45)
[2023-06-25 08:42] LABS: Basophils Percent Auto 0.3 % (0.2-1.2); Hemoglobin 10.5 g/dL (12.0-15.0); Immature Granulocyte Absolute 0.53 K/mm3 (0.00-0.031); Immature Granulocyte Percent A 5.3 % (0-0.5); Lymphocytes Absolute Auto 1.15 K/mm3 (0.9-3.2); Lymphocytes Percent Auto 11.6 % (18.3-44.2); Mean Corpuscular Hemoglobin 34.1 pg (26-34); Mean Corpuscular Volume 97.4 fl (80-100); Mean Platelet Volume 9.1 fl (7.4-10.4); Monocytes Absolute Auto 0.5 K/mm3 (0.1-0.6); Monocytes Percent Auto 5.1 % (2.6-8.5); Neutrophils Absolute Auto 7.7 K/mm3 (1.3-6.7); Neutrophils Percent Auto 77.7 % (45.5-73.1); Platelet Count Result 182 k/mm3 (150-375); Red Blood Count 3.08 M/mm3 (4.2-5.4); Red Cell Distribution Width 14.3 % (11.5-14.5); White Blood Count 9.9 K/mm3 (4.5-10.0)
[2023-06-25 08:47] LABS: Anion Gap 9 mmol/L (8-16); Blood Urea Nitrogen 12 mg/dL (7-17); Carbon Dioxide 21 mmol/L (22-30); Chloride 99 mmol/L (98-107); Potassium 2.9 mmol/L (3.4-5.0); Sodium 129 mmol/L (137-145)
[2023-06-25 08:48] LABS: Alanine Aminotransferase 20 U/L (6-35); Albumin Level 3.3 g/dL (3.5-5.1); Alkaline Phosphatase 47 U/L (38-126); Aspartate Amino Transferase 41 U/L (14-36); Bilirubin,Total 1.1 mg/dL (0.2-1.3); Calcium 7.2 mg/dL (8.4-10.2); Estimated CRCL calculation 86 ml/min; Estimated Glomerular Filt Rate > 60; Glucose 115 mg/dL (65-110); Magnesium 1.8 mg/dL (1.6-2.3)
--- NOTE | 2023-06-25 09:09 | WPDANESPN ---
Anes - Prog Note Post-Op Date/Time: 06/25/23 09:09 Cardiovascular status: normal Respiratory status: normal Airway patency: baseline Mental status: baseline Post-Op hydration status: normal Vital Signs: Last Vital Signs Temp 36.2 C L 06/25/23 08:30 Pulse 98 06/25/23 08:40 Resp 16 06/25/23 08:40 BP 145/83 H 06/25/23 08:40 Pulse Ox 100 06/25/23 08:40 O2 Del Method Room Air 06/25/23 08:29 Pain Score (VAS): 10/09 I/O: Intake & Output 06/24/23 06/25/23 06/25/23 23:59 07:59 15:59 Intake Total 1640 1140 Output Total 2 Balance 1640 1138 Laboratory Tests 06/25/23 08:11 06/25/23 08:11 06/23/23 06/24/23 06/24/23 12:06 09:44 15:42 WBC 13.0 H RBC 2.12 L Hgb 7.4 L 7.1 L Hct 20.5 L* 19.5 L* MCV 96.7 D MCH 34.9 H D MCHC 36.1 H RDW 13.8 Plt Count 237 MPV 9.8 Immature Gran % (Auto) Neut % (Auto) Lymph % (Auto) [place] % (Auto) Eos % (Auto) Baso % (Auto) Lymph # (Auto) [place] # (Auto) Eos # (Auto) Baso # (Auto) Abs Immat Gran (auto) Absolute Neuts (auto) Absolute Nucleated RBC Nucleated RBC % Sodium 125 L 125 L Potassium 2.9 L 3.1 L Chloride 94 L 96 L Carbon Dioxide 24 24 Anion Gap 7 L 5 L BUN 22 H 22 H Creatinine 0.70 0.60 L Estim Creat Clear Calc 64 73 Estimated GFR > 60 > 60 Glucose 113 H 113 H Lactic Acid 1.4 Calcium 7.6 L 7.4 L Magnesium 2.0 1.9 Total Bilirubin 1.0 AST 42 H ALT 20 Alkaline Phosphatase 45 Total Protein 5.0 L Albumin 2.8 L Blood Type A Negative Antibody Screen Negative Crossmatch See Detail 06/24/23 06/24/23 06/25/23 22:21 22:21 08:11 WBC 9.9 RBC 3.08 L Hgb 6.6 L* 10.5 L D Hct 18.8 L* 30.0 L MCV 97.4 MCH 34.1 H MCHC 35.0 RDW 14.3 Plt Count 182 MPV 9.1 Immature Gran % (Auto) 5.3 H Neut % (Auto) 77.7 H Lymph % (Auto) 11.6 L [place] % (Auto) 5.1 Eos % (Auto) 0.0 Baso % (Auto) 0.3 Lymph # (Auto) 1.15 [place] # (Auto) 0.5 Eos # (Auto) 0.0 Baso # (Auto) 0.0 Abs Immat Gran (auto) 0.53 H Absolute Neuts (auto) 7.7 H Absolute Nucleated RBC 0.0 Nucleated RBC % 0.0 Sodium 129 L 129 L Potassium 3.2 L 2.9 L Chloride 101 99 Carbon Dioxide 22 21 L Anion Gap 6 L 9 BUN 17 12 D Creatinine 0.60 L 0.50 L Estim Creat Clear Calc 73 86 Estimated GFR > 60 > 60 Glucose 107 115 H Lactic Acid Calcium 7.2 L 7.2 L Magnesium 2.0 Cancelled 1.8 Total Bilirubin 1.1 AST 41 H ALT 20 Alkaline Phosphatase 47 Total Protein 6.0 L Albumin 3.3 L Blood Type Antibody Screen Crossmatch Microbiology 06/23/23 15:24 Blood Blood Culture - Preliminary Gram positive cocci in chains 06/23/23 15:24 Blood Blood Culture - Preliminary Gram positive cocci in chains Post-procedural complaints: none Patient Feedback: Patient satisfied with anesthetic care.
[2023-06-25] MEDS: POTASSIUM CHLORIDE 20 MEQ ER TABLET 40 MEQ PO (11:21)
[2023-06-25] MEDS: POTASSIUM CHLORIDE INJ 40 MEQ in SODIUM CHLORIDE 0.9% IV 500 ML 130 MEQ IVPB (11:22)
--- NOTE | 2023-06-25 14:36 | PC.NURSE ---
On 06/25/23, the student, [Yasmine Osman], provided care and completed [facility] documentation on this patient. I have reviewed the student's documentation and agree with the findings.
[2023-06-25 16:31] LABS: Anion Gap 7 mmol/L (8-16); Blood Urea Nitrogen 11 mg/dL (7-17); Carbon Dioxide 20 mmol/L (22-30); Chloride 100 mmol/L (98-107); Estimated CRCL calculation 86 ml/min; Estimated Glomerular Filt Rate > 60; Glucose 112 mg/dL (65-110); Potassium 3.9 mmol/L (3.4-5.0); Sodium 127 mmol/L (137-145)
[2023-06-25 16:59] LABS: Hematocrit 28.8 % (37.0-47.0); Hemoglobin 9.9 g/dL (12.0-15.0)
[2023-06-25 20:34] LABS: Hematocrit 32.6 % (37.0-47.0); Hemoglobin 11.1 g/dL (12.0-15.0)
[2023-06-26 00:04] VITALS: PULSE 103
[2023-06-26 04:00] VITALS: PULSE 104
[2023-06-26 04:07] VITALS: BP 140/88; PULSE 102; RESP 18; TEMP 36.4; O2SAT 99
[2023-06-26] MEDS: ACETAMINOPHEN 325 MG TABLET 650 MG PO (04:47)
[2023-06-26] MEDS: PIPERACILLN/TAZ 3.375GM/NS50ML 3.375 GM/50 ML BAG IVPB ×2 (05:27→12:08)
[2023-06-26] MEDS: LEVOTHYROXINE SODIUM 75 MCG TABLET PO (05:30)
[2023-06-26 07:29] LABS: Hematocrit 30.4 % (37.0-47.0); Hemoglobin 10.6 g/dL (12.0-15.0); Mean Corpuscular HGB Conc 34.9 g/dl (32-36); Mean Corpuscular Hemoglobin 34.2 pg (26-34); Mean Corpuscular Volume 98.1 fl (80-100); Platelet Count Result 203 k/mm3 (150-375); Red Cell Distribution Width 14.7 % (11.5-14.5); White Blood Count 13.1 K/mm3 (4.5-10.0)
[2023-06-26 07:41] LABS: Anion Gap 10 mmol/L (8-16); Blood Urea Nitrogen 8 mg/dL (7-17); Calcium 7.7 mg/dL (8.4-10.2); Carbon Dioxide 19 mmol/L (22-30); Chloride 99 mmol/L (98-107); Estimated CRCL calculation 86 ml/min; Estimated Glomerular Filt Rate > 60; Glucose 122 mg/dL (65-110); Magnesium 1.8 mg/dL (1.6-2.3); Potassium 3.2 mmol/L (3.4-5.0); Sodium 128 mmol/L (137-145)
--- NOTE | 2023-06-26 07:50 | WPDGIPROGNO ---
Progress Note: A&P Assessment and Plan (1) Gastric ulcer: Code(s): K25.9 - Gastric ulcer, unspecified as acute or chronic, without hemorrhage or perforation Status: Acute Assessment and Plan: Patient with several gastric ulcers as well as pyloric channel ulcers. No longer bleeding. Plan to keep patient on pantoprazole. She should avoid NSAIDs which appeared to be the etiology for her ulcers. Follow-up EGD is suggested in 2 months. Hemoglobin currently stable. Okay for discharge from the GI perspective. Subjective Date/time seen: 06/26/23 07:50 Interval history: Patient alert comfortable this morning. Tolerating diet. Stools have returned to normal color. Denies abdominal pain. Anxious to go home. Review of Systems Review of Systems: Review of systems noncontributory. Exam Narrative: Physical exam I am rib feels patient be alert. Vital signs stable. Comfortable at rest. HEENT exam reveals no icterus. Lungs are clear. Heart without murmur. Abdomen bowel sounds are present soft nontender with no organomegaly. Objective Data Vital Signs Vital Signs: Vital Signs - 24 hr 06/25/23 08:29 06/25/23 08:30 06/25/23 08:35 Temperature 97.1 F L Pulse Rate 93 93 Respiratory Rate 15 16 16 Blood Pressure 145/88 H 152/90 H Pulse Oximetry 98 100 99 Oxygen Delivery Room Air 06/25/23 08:40 06/25/23 08:03 06/25/23 14:45 Temperature 97.1 F L Pulse Rate 98 98 90 Respiratory Rate 16 16 Blood Pressure 145/83 H 138/85 Pulse Oximetry 100 100 Oxygen Delivery 06/25/23 16:03 06/25/23 20:00 06/25/23 20:08 Temperature 97.7 F 97.7 F Pulse Rate 92 101 H 101 H Respiratory Rate 18 18 Blood Pressure 136/80 136/80 Pulse Oximetry 100 100 Oxygen Delivery 06/25/23 20:07 06/25/23 20:07 06/25/23 20:00 Temperature 97.7 F 97.7 F Pulse Rate 102 H 104 H 102 H Respiratory Rate 18 18 Blood Pressure 132/82 131/69 Pulse Oximetry 100 100 Oxygen Delivery 06/26/23 00:04 06/26/23 04:00 06/26/23 04:07 Temperature 97.5 F L Pulse Rate 103 H 104 H 102 H Respiratory Rate 18 Blood Pressure 140/88 Pulse Oximetry 99 Oxygen Delivery Intake/Output Intake/Output: Intake & Output 06/23/23 06/24/23 06/25/23 06/26/23 23:59 23:59 23:59 23:59 Intake Total 3620 2190 3020 540 Output Total 100 1 Balance 3520 2190 3019 540 Meds/Results Medications: Active Medications Generic Name Dose Route Start Last Admin Trade Name Freq PRN Reason Stop Dose Admin Acetaminophen 650 mg 06/24/23 07:37 06/26/23 04:47 Acetaminophen 325 Mg Tablet PO 650 mg Q6H PRN Administration Mild Pain (1-3) or Fever Gabapentin 600 mg 06/23/23 23:10 06/25/23 17:21 Gabapentin 300 Mg Capsule PO 600 mg TID ZENA Administration Piperacillin/Tazobactam/Dextrose 3.375 gm in 50 mls @ 100 mls/hr 06/23/23 23:00 06/26/23 05:57 Zosyn 3.375 Gm/Ns 50 Ml IVPB Infused Q6HR ZENA Infusion Magnesium Sulfate 2 gm in 50 mls @ 50 mls/hr 06/24/23 14:05 Magnesium Sulf 2 Gm/Water 50ml IVPB PRN PRN Hypomagnesemia Potassium Chloride 40 meq/ 520 mls @ 130 mls/hr 06/24/23 14:09 Sodium Chloride IVPB PRN PRN hypokalemia Levothyroxine Sodium 75 mcg 06/24/23 06:30 06/26/23 05:30 Levothyroxine Sodium 75 Mcg Tablet PO 75 mcg DAILY@0630 ZENA Administration Pantoprazole Sodium 40 mg 06/25/23 09:00 06/25/23 20:45 Pantoprazole 40 Mg Tablet PO 40 mg Q12HR ZENA Administration Radiology Results: ITS Impressions Abdomen/Pelvis CT 06/23/23 13:29 IMPRESSION: 1. Mild thickening of the gastric antrum, suspicious for gastritis. 2: Hepatic steatosis. Labs Labs: Laboratory Results - last 24 hr 06/25/23 06/25/23 06/25/23 08:11 16:13 16:14 WBC 9.9 RBC 3.08 L Hgb 10.5 L D 9.9 L Hct 30.0 L 28.8 L MCV 97.4 MCH 34.1 H MCHC 35.0 RDW 14.3 Plt Count 182 MPV 9.1 Immature Gran %
[2023-06-26 08:00] VITALS: PULSE 101; RESP 18; O2SAT 100
[2023-06-26] MEDS: PANTOPRAZOLE 40 MG TABLET PO (08:29)
[2023-06-26] MEDS: GABAPENTIN 300 MG CAPSULE 600 MG PO ×2 (08:29→12:08)
[2023-06-26 10:10] VITALS: BP 158/90; PULSE 99; RESP 18; TEMP 36.4; O2SAT 100
[2023-06-26 10:15] VITALS: BP 160/90; PULSE 101; RESP 18; O2SAT 100
--- NOTE | 2023-06-26 12:06 | PM.DS ---
DS: Admitting Diagnosis Discharge Date 06/26/23 Admitting Diagnosis Anemia, gastric ulcers, cellulitis DS: Discharge Diagnosis Discharge Diagnosis (1) Lactic acidosis: Code(s): E87.20 - Acidosis, unspecified Status: Acute (2) Bloody stool: Code(s): K92.1 - Melena Status: Acute (3) Electrolyte abnormality: Code(s): E87.8 - Other disorders of electrolyte and fluid balance, not elsewhere classified Status: Acute (4) Gastritis: Qualifiers: Chronicity: acute Gastritis bleeding: with bleeding Gastritis type: unspecified gastritis Qualified Code(s): K29.01 - Acute gastritis with bleeding Code(s): K29.70 - Gastritis, unspecified, without bleeding Status: Acute (5) Systemic inflammatory response syndrome: Code(s): R65.10 - Systemic inflammatory response syndrome (SIRS) of non-infectious origin without acute organ dysfunction Status: Acute (6) Generalized weakness: Code(s): R53.1 - Weakness Status: Acute (7) Macrocytic anemia: Code(s): D53.9 - Nutritional anemia, unspecified Status: Acute (8) Hypothyroidism: Code(s): E03.9 - Hypothyroidism, unspecified Status: Acute (9) Idiopathic peripheral neuropathy: Code(s): G60.9 - Hereditary and idiopathic neuropathy, unspecified Status: Acute DS: Summary Hospital Course Hospital Course: this is a 8-year-old female with past medical history of hypothyroidism and idiopathic peripheral neuropathy the present to the ED on 06/23/2023 for evaluation of weakness. She was diagnosed with cellulitis of the hand approximately 1 week before presentation was given Keflex. Ever since starting that antibiotic she had decreased appetite. She did have nausea but no vomiting at that time. Patient also experienced some lightheadedness and dizziness upon standing. She admits to rust colored stools. On presentation her blood pressures were stable, tachycardic in the low 100s, white blood cell count of 25.3, hemoglobin of 8.6, sodium of 123 and potassium of [address] abdomen pelvis showed gastric antrum suspicious for gastritis and hepatic steatosis. She was started on potassium, pantoprazole and Zosyn. Her stool cultures and C diff were negative. Patient's occult stool was positive and GI was consulted. GI performed EGD revealing gastric ulcers and patient was continued on pantoprazole. Patient's blood cultures did come back positive for Streptococcus mitis group sensitive to penicillin. Patient was transition from Zosyn to amoxicillin. It is thought that bacteremia is likely due to from patient's cellulitis. Patient feeling much better after receiving IV antibiotic therapy. Advised to continue pantoprazole and follow-up with GI for a repeat EGD in 2 months. Will complete a 10 day antibiotic therapy of amoxicillin. Labs of bowel surgery stable and she is medically clear for discharge at this time. Time Spent with Patient Time attestation: Total time spent providing and/or coordinating discharge services: Exam Narrative: GENERAL: Comfortable, no acute distress HENMT: moist mucous membranes EYES: EOM intact b/l NECK: no lymphadenopathy RESPIRATORY: clear to auscultation CARDIO: RRR GI: soft, nontender, bowel sounds present SKIN: no rashes EXTREMITIES: no edema, redness or tenderness DS: Data Data Completed and Pending Pending studies at discharge: Pending at discharge 06/24/23 14:31 Surgical [PTH] Routine Labs on day of discharge: Labs from last 24 hours 06/26/23 06/25/23 06/25/23 06:42 20:18 16:14 WBC 13.1 H RBC 3.10 L Hgb 10.6 L 11.1 L Hct 30.4 L 32.6 L MCV 98.1 MCH 34.2 H MCHC 34.9 RDW 14.7 H Plt Count 203 MPV 9.0 Sodium 128 L 127 L Potassium 3.2 L 3.9 Chloride 99 100 Carbon Dioxide 19 L 20 L Anion Gap 10 7 L BUN 8 11 Creatinine 0.50 L 0.50 L Estim Creat Pio
[2023-06-26 15:14] LABS: Osmolality, Urine 338 mOsm/kg (50-1200)
--- NOTE | 2023-07-02 07:31 | PC.NURSE ---
Blood cultures are negative. KAREN Pena aware of findings.
== END 2023-06-26 13:33 | disposition home or self-care (01) | DRG 378 ==
LOC: ANHED 15:58 → ANH2MED 16:16
PROVIDERS: Emergency Medicine; Internal Medicine Gastroenterology; Nurse Practitioner Acute Care; Physician Assistant; Admitting Provider Internal Medicine; Emergency Provider Student in an Organized Health Care Education/Training Program; PCP Family Medicine; Visit Provider Internal Medicine Critical Care Medicine
PROC: 0DJ08ZZ Inspection of Upper Intestinal Tract, Via Natural or Artificial Opening Endoscopic (ICD-10-PCS; CPT 43235; principal; 2023-06-24 15:00)
DX: K25.0 Acute gastric ulcer with hemorrhage (principal); E87.1 Hypo-osmolality and hyponatremia; E87.20 Acidosis, unspecified; R78.81 Bacteremia; R65.10 Systemic inflammatory response syndrome (SIRS) of non-infectious origin without acute organ dysfunction; L03.113 Cellulitis of right upper limb; K92.1 Melena; D53.9 Nutritional anemia, unspecified; E06.3 Autoimmune thyroiditis; E86.0 Dehydration; E87.6 Hypokalemia; B95.4 Other streptococcus as the cause of diseases classified elsewhere; G60.9 Hereditary and idiopathic neuropathy, unspecified; F41.9 Anxiety disorder, unspecified; Z20.822 Contact with and (suspected) exposure to COVID-19
CPT/HCPCS: 36415; 36430; 74177; 80048; 80053; 80307; 81001; 82274; 82570; 82607; 82728; 82746; 83540; 83550; 83605; 83690; 83735; 83880; 83930; 83935; 84145; 84295; 84300; 84443; 84484; 84540; 85014; 85018; 85025; 85027; 85046; 85610; 85730; 86140; 86850; 86900; 86901; 86923; 87040; 87081; 87147; 87181; 87186; 87493; 87635; 88305; 88342; 93005; 96361; 96374; 96375; 99285; A9270; C9113; J2060; J2543; J2704; J3475; J3480; J7030; J7040; J7050; J7120; P9016; Q9967

== ENCOUNTER 2023-08-26 13:28 | Outpatient (RCR) | payer BC, SELFPAY ==
--- NOTE | 2023-08-26 14:28 | PTOPEVDC ---
Assessment and note entered by Raymond Bell, PT, DPT Thank you for referring Nohemy Dickson to [facility].? An evaluation has been completed. No further treatment is needed. Evaluation Information Assessment Status Evaluation Diagnosis hx of falls and generalized weakness (M62.81, Z91. 81) Subjective Information Pt states she has neuropathy. She states she also was put on a medication that caused her to not eat much, from this she passed out and had a fall. She was hospitalized for this about 2 months ago. Currently she states she is feeling more herself and mostly back to her baseline. Reported Pain Level Pain Score 0: Self Report Assessment PT Clinical Summary Nohemy presents to therapy today for her initial evaluation with a diagnosis of history of falls and generalized weakness. Upon evaluation, pt states she is functioning at her baseline. She demonstrates a MELLO score of 52/56 and a 5xSTS of 16s. She was educated on a HEP to promote improved balance and strength and was educated on community resources as well. She will be discharged at this time as she does not require any skilled services at this time. Plan of Care PT Services Indicated No Treatment Frequency and evaluate and discharge Duration
== END 2023-09-13 15:36 | disposition home or self-care (01) ==
LOC: ANHGOSHPT 13:28
PROVIDERS: PCP Family Medicine; Visit Provider Family Medicine
DX: M62.81 Muscle weakness (generalized) (principal); Z91.81 History of falling
CPT/HCPCS: 97110; 97161; 97530

== ENCOUNTER 2023-08-30 00:35 | Day surgery (SDC) | payer BC, SELFPAY ==
[2023-08-14 14:28] VITALS: BMI 18.5
--- NOTE | 2023-08-28 09:53 | SUR.PREOP ---
Patient called regarding upcoming procedure. Reviewed preop instructions, appointment times, and procedure prep.
[2023-08-30 09:24] VITALS: BP 110/76; PULSE 79; RESP 16; TEMP 36.4; O2SAT 100
[2023-08-30] MEDS: LACTATED RINGERS 1,000 ML 150 ML IV CONT (09:37)
--- NOTE | 2023-08-30 09:44 | WPDANESEPPF ---
Anes - Initial Pre Proc Eval Procedure: Operation Date: 08/30/23 10:30 Proposed Procedures p Esophagogastroduodenoscopy - Vicente Donis MD Date/Time: 08/30/23 09:44 Surgeon: Vicente Donis MD Pre Op Diagnosis: Garcia's esophagus Patient Data Age: 63 Gender: F Height: 1.63 m Weight: 50.2 kg Last Vital Signs Temp 97.5 F L 08/30/23 09:24 Pulse 79 08/30/23 09:24 Resp 16 08/30/23 09:24 BP 110/76 08/30/23 09:24 Pulse Ox 100 08/30/23 09:24 O2 Del Method Room Air 08/30/23 09:24 Allergies Allergy/AdvReac Type Severity Reaction Status Date / Time Sulfa (Sulfonamide Allergy Unknown Skin Verified 08/30/23 09:23 Antibiotics) Reaction azithromycin AdvReac Severe Thrush Verified 08/30/23 09:23 NSAIDS (Non-Steroidal AdvReac Severe bleeding Verified 08/30/23 09:23 Anti-Inflamma gastric and pyloric channel ulcers Home Medications Medication Instructions Recorded Confirmed Type gabapentin 300 mg capsule 600 mg PO TID 06/23/23 08/14/23 History levothyroxine 75 mcg tablet 75 mcg PO DAILY 06/23/23 08/30/23 History pantoprazole 40 mg tablet,delayed 40 mg PO DAILY 08/14/23 08/14/23 History release Patient hx anesthesia problems: none Family hx anesthesia problems: none Results Review: All pre-operative results and documents have been reviewed as part of the pre-operative evaluation. [facility], [facility] Past Medical History Medical History Acute GI bleeding Anxiety Hypothyroidism Idiopathic peripheral neuropathy Surgical History Surgical History History of appendectomy Family History Family History Other Family history non-contributory Social History Social History (Updated 08/01/23 @ 13:05 by Cristel Barlow MA) Social History: Surrogate medical decision maker: Jessica Miranda, daughter. Code status: Full code. Smoking status: Never smoker Second hand tobacco smoke exposure: No Alcohol intake: never Substance use: never Substance use type: does not use Lack of Transportation: No Lack of Food: Never True Current Housing: I Have Housing Concerned About Future Housing: No Difficulty Paying Gas/Electric Bills: No Difficulty Paying for Meds: No Currently Unemployed: No Education: High School Diploma/GED Difficulty w/ Childcare or Family Care: No Living arrangements: alone Spiritual care concerns: No Anes - Eval Final PreProcedure Day of Procedure 08/30/23 09:44 Patient weight: normal Heart: regular rate and rhythm Lungs: clear to auscultation Airway: Mallampati scale class II Neurological: alert and oriented Last oral intake: >/= 8 hours ASA classification: II Emergent: no Anesthetic plan: proceed Anesthesia type and monitoring: general GIVS and standard monitoring Results Review: All pre-operative results and documents have been reviewed as part of the pre-operative evaluation. Informed Consent: The patient's anesthetic plan and its attendant risks and benefits were discussed with the patient/family/POA. Questions were solicited and answers provided to the satisfaction of the patient/family/POA.
--- NOTE | 2023-08-30 09:53 | PM.HPGS ---
History of Present Illness History of Present Illness Consent: Risks, benefits, and alternatives have been discussed and questions answered. Patient agrees to proceed with procedure. Chief complaint: history of gastric ulcers Narrative: Nohemy Dickson is a 63 year old female Presents for follow-up EGD. Patient was found to have multiple gastric ulcers in May. She currently has been maintained on pantoprazole 40mg p.o. daily. She denies abdominal pain. She has had no bleeding. Her previous back pain has resolved. Patient presents today for EGD to document healing of these lesions. Review of Systems Review of Systems: review of systems noncontributory. ON LICENSE OF [facility] Past Medical History Medical History Acute GI bleeding Anxiety Hypothyroidism Idiopathic peripheral neuropathy Surgical History Surgical History History of appendectomy Family History Family History Other Family history non-contributory Social History Social History (Updated 08/01/23 @ 13:05 by Cristel Barlow MA) Social History: Surrogate medical decision maker: Jessica Miranda, daughter. Code status: Full code. Smoking status: Never smoker Second hand tobacco smoke exposure: No Alcohol intake: never Substance use: never Substance use type: does not use Lack of Transportation: No Lack of Food: Never True Current Housing: I Have Housing Concerned About Future Housing: No Difficulty Paying Gas/Electric Bills: No Difficulty Paying for Meds: No Currently Unemployed: No Education: High School Diploma/GED Difficulty w/ Childcare or Family Care: No Living arrangements: alone Spiritual care concerns: No Meds Home Medications and Allergies Home Medications Medication Instructions Recorded Confirmed Type gabapentin 300 mg capsule 600 mg PO TID 06/23/23 08/14/23 History levothyroxine 75 mcg tablet 75 mcg PO DAILY 06/23/23 08/30/23 History pantoprazole 40 mg tablet,delayed 40 mg PO DAILY 08/14/23 08/14/23 History release Allergies Allergy/AdvReac Type Severity Reaction Status Date / Time Sulfa (Sulfonamide Allergy Unknown Skin Verified 08/30/23 09:23 Antibiotics) Reaction azithromycin AdvReac Severe Thrush Verified 08/30/23 09:23 NSAIDS (Non-Steroidal AdvReac Severe bleeding Verified 08/30/23 09:23 Anti-Inflamma gastric and pyloric channel ulcers Vital Signs Vital Signs - 24 hr 08/30/23 09:24 Temperature 97.5 F L Pulse Rate 79 Respiratory Rate 16 Blood Pressure 110/76 Pulse Oximetry 100 Oxygen Delivery Room Air Exam Narrative: Physical exam reveals patient to be alert. Vital signs stable. HEENT exam is unremarkable. Patient is anicteric. Lungs are clear to auscultation and percussion. Heart is without murmur or extra sounds. Abdomen bowel sounds are present soft nontender with no organomegaly. Assessment and Plan Assessment and plan (1) History of gastric ulcer: Code(s): Z87.11 - Personal history of peptic ulcer disease Status: Acute Assessment and Plan: Patient was found to have multiple gastric ulcers in May. Plan for follow-up EGD at this time. Patient should continue to avoid alcohol. Continue pantoprazole 40mg p.o. daily. Avoid NSAIDs.
[2023-08-30 10:15] VITALS: BP 89/56; PULSE 79; RESP 19; O2SAT 98
[2023-08-30 10:25] VITALS: BP 94/55; PULSE 79; RESP 19; O2SAT 99
[2023-08-30 10:35] VITALS: BP 105/57; PULSE 79; RESP 18; O2SAT 100
== END 2023-08-30 10:50 | disposition home or self-care (01) ==
PROVIDERS: PCP Family Medicine; Visit Provider Internal Medicine Gastroenterology
PROC: 0DJ08ZZ Inspection of Upper Intestinal Tract, Via Natural or Artificial Opening Endoscopic (ICD-10-PCS; CPT 43235; principal; 2023-08-30 10:30)
DX: K22.70 Barrett's esophagus without dysplasia (principal); I10 Essential (primary) hypertension; E03.9 Hypothyroidism, unspecified; G60.9 Hereditary and idiopathic neuropathy, unspecified; Z87.11 Personal history of peptic ulcer disease
CPT/HCPCS: 43239; 87081; J2704; J7120

== ENCOUNTER → 2023-11-19 13:49 | Outpatient (CLI) | payer BC, SELFPAY ==
--- NOTE | ~2023-11-19 | MM_ITS ---
EXAMINATION: MM screening rosalia BI w yoselin HISTORY: Screening TECHNIQUE: Craniocaudal and mediolateral oblique 3-D tomosynthesis images were obtained and synthetic 2-D images were generated. CAD analysis was submitted and interpreted. COMPARISON: Comparison to multiple prior studies sequentially, with oldest reviewed study dated 07/01. BREAST PARENCHYMAL COMPOSITION: Dense: The breasts are extremely dense, which lowers the sensitivity of mammography. FINDINGS: There is no evidence of suspicious mass, calcification, or architectural distortion to sugg est malignancy in either breast. There has been no suspicious interval change. IMPRESSION: 1. No mammographic evidence of malignancy. 2. Recommend routine screening mammography in one year. BI-RADS Category 1: Negative Reviewed, dictated and finalized at location A. IC RELATIONS DIRECTOR
== END ==
PROVIDERS: PCP Family Medicine; Visit Provider Family Medicine
DX: Z12.31 Encounter for screening mammogram for malignant neoplasm of breast (principal)
CPT/HCPCS: 77063; 77067